=== PATIENT | female | born 1930 | race Caucasian/White ===

== ENCOUNTER 2017-03-10 14:59 | Inpatient (IN) | payer MEDICARE, OTHER ==
[2017-03-10] VITALS (14 sets, daily range): BP systolic 110–162; BP diastolic 54–92; PULSE 57–148; RESP 17–22; O2SAT 94–99
[~2017-03-10] VITALS: Ht 162.6 cm; Wt 86.1 kg
--- NOTE | 2017-03-10 15:02 | ED.REPORT ---
HPI-Abd Pain F 40 and Over Date of Service Mar 10, 2017 ED Provider: Dandy Bhat DO The patient is an 86 year old female with history of hypertension, hypothyroidism, GERD, diverticulitis, and asthma, who was brought to the emergency department by EMS from the [facility] for atrial fibrillation with rapid ventricular response. The patient was seen in the ED a few days ago, diagnosed with diverticulitis, and was discharged home on antibiotics. She has not vomited for a few days and never had diarrhea. She was being seen at the clinic today for followup. During the visit she was found to be in atrial fibrillation. The patient also mentioned left-sided chest pain during the visit. She was given 324 mg aspirin and 25 mg Cardizem prior to arrival to the emergency department. She has never had similar symptoms in the past. She denies history of atrial fibrillation. She is not on blood thinners. The patient feels fine at this time. Nursing Notes Stated Complaint: ABDOMINAL PAIN Chief Complaint: Dysrhythmia/Cardiac Nursing Notes Reviewed: Yes Allergies: Coded Allergies: Penicillins (Verified Allergy, Unknown, HIVES, 06/24/09) ciprofloxacin (Verified Allergy, Unknown, 03/10/17) codeine (Verified Allergy, Unknown, N/V, 06/24/09) diclofenac (Verified Allergy, Unknown, Nausea, 03/10/17) hydrochlorothiazide (Verified Allergy, Unknown, 03/10/17) propoxyphene (Verified Allergy, Unknown, N/V, 06/24/09) tramadol (Verified Allergy, Unknown, 03/10/17) General Time Seen by MD: 14:59 Chief Complaint Other (a-fib with RVR) Hx Obtained From: Patient, Spouse, EMS, Primary care provider Arrived By: Ambulance Sudden in Onset?: No Onset Occurred: Onset unknown Symptom Duration: Duration unknown Location: : LLQ Quality: Painful Severity: Current: Moderate Severity: Maximum: Moderate Recent Healthcare: No recent hospitalization, Recent doctor visit Similar Sx Previous: No Past Medical History Past Medical History Hypertension GERD Hypothyroidism Chronic kidney disease Asthma Arthritis Diverticulitis Past Surgical History Cholecystectomy Hysterectomy Right elbow Left knee replacement Appendectomy Colonoscopy Family History Noncontributory Smoking History Unknown if Ever Smoker Social History Other Social History: Good social support, , Local resident Ambulatory Status Independent Review of Systems Cardiovascular: Reports: Chest pain GI: Reports: Abdominal pain, Denies: Diarrhea, Vomiting Complete sys rev & neg: except as marked. Physical Exam Vital Signs Vital Signs (First) Date Time Temp Pulse Resp B/P Pulse Ox O2 Delivery O2 Flow Rate FiO2 03/10/17 15:01 36.8 131 22 152/81 98 Room Air Initial VS: Reviewed Head / Eyes: Atraumatic, Normocephalic, PERRL ENT: Mucous membranes moist, Conjunctiva normal, No scleral icterus Neck: Supple, Non-tender, Full range of motion Lymphatic: No lymphadenopathy Extremities: Vascular intact, Neuro intact, No swelling, No tenderness Skin: Warm, Dry, No cyanosis Neurologic: Alert, Oriented, Nonfocal Psychiatric: Mood/affect normal, Behavior normal, Normal thought content General/Constitutional: Awake, Alert Respiratory / Chest: Atraumatic, Breath sounds NL, Breath sounds = bilat, No respiratory distress, No rales, No rhonchi, No wheezing, No stridor Cardiovascular: Heart sounds NL Heart Rate / Rhythm: Positive: Irregular rhythm, Tachycardia Abdomen: Soft, No guarding, No rebound, BS normoactive, No distention, No hernia, No palpable mass, No pulsatile mass Tenderness/Guarding/Rebound: Positive: Tender LLQ..., Tender RLQ... Back: Inspection NL, Non-tender, No CVA tenderness Interpretation & Diagnostics Lab Results Interpretation Result Diagram: 03/10/17 1625 03/10/17 1625 Test 03/10/17 16:25 03/10/17 16:33 White Blood Count 10.1th/mm3 (3.8-10.1) Red Blood Count 4.23mil/mm3 (3.90-5.20) Hemoglobin 12.0g/dL (12.0-15.6) Hematocrit 36.6% (35.0-46.0) Mean Corpuscular Volume 86.5fL (81-100) Mean Corpuscular Hemoglobin 28.4pg (27.0-35.0) Mean Corpuscular Hemoglobin Concent 32.8% (32.0-37.0) Red Cell Distribution Width 13.0% (12.3-15.4) Platelet Count 250bil/L (150-400) Neutrophils (%) (Auto) 68.0% (40-74) Lymphocytes (%) (Auto) 14.1% (14-46) Monocytes (%) (Auto) 16.5% (4-12) Eosinophils (%) (Auto) 0.9% (0-5) Basophils (%) (Auto) 0.3% (0-3) Prothrombin Time 10.6sec (8.1-12.5) Prothromb Time International Ratio 0.99ratio Sodium Level 141mEq/L (134-144) Potassium Level 3.3mEq/L (3.5-5.2) Chloride Level 103mEq/L (97-108) Carbon Dioxide Level 21mmol/L (18-29) Blood Urea Nitrogen 14mg/dL (8-27) Creatinine 0.87mg/dL (0.57-1.00) Estimat Glomerular Filtration Rate 88mL/min (>59) Glucose Level 109mg/dL (60-99) Calcium Level 9.0mg/dL (8.5-10.1) Magnesium Level 1.8mg/dL (1.6-2.6) Total Bilirubin 0.2mg/dL (0.0-1.2) Aspartate Amino Transf (AST/SGOT) 19U/L (0-50) Alanine Aminotransferase (ALT/SGPT) 12U/L (0-32) Alkaline Phosphatase 83U/L (25-165) Troponin T < 0.010ug/L (0.0-0.011) Pro-B-Type Natriuretic Peptide 1835pg/mL (0-738) Total Protein 6.5g/dL (6.4-8.4) Albumin 3.3g/dL (3.4-5.0) Hold Burnett Top Tube Received (Received) ECG Interpretation ECG Interpretation: Atrial fibrillation with a rate of 119 PVCs Time: 15:37 Interpreted by: ED physician X-Ray Chest Interpretation Chest Xray Interpretation: IMPRESSION: No radiographic evidence of acute cardiopulmonary pathology. Dictated by: Fredi Owen M.D. on 03/10/2017 at 16:15 Interpretation / Wet Read by: Interpret - Radiologist CT Abd / Pelvis Interpretation IMPRESSION: 1. Sigmoid diverticulitis without diverticular abscess or macroscopic free air. 2. Small 4 mm right lower lobe pulmonary nodule. A followup study may be performed in 12 months to demonstrate stability if clinically indicated. Dictated by: Shelton Watt M.D. on 03/10/2017 at 17:50 Interpretation / Wet Read by: Interpret - Radiologist Re-Eval/Medical Decision Med Decision/Clinical Course CHADS 2 score = 2. AFib with RVR rate not able to be controlled with multiple doses of IV Cardizem. IV Cardizem drip initiated in the ER. Additionally has diverticulitis which is worsening based on symptoms. Patient will be admitted. Source of Hx: Old records, EMS, Family Re-Evaluation/Progress : Time of Eval: 18:02 Re-Evaluation/Progress Note: Discussed plan for admission with the patient. She is agreeable with plan. All questions were addressed. Consultation #1: Consulted With: Hospitalist Requested Call at: 18:03 Manager Sap: Will see patient, Agrees with eval, Agrees with plan, Accepts admit Consultation #2: Referral / Consult Name: Trish Alcaraz MD Call Returned at: 18:15 Note: no anticoagulation, contact cardiology in AM if consult needed Counseled Regarding: Diagnosis, Lab results, Need for admission Discharge & Departure Primary Impression: Atrial fibrillation with rapid ventricular response Additional Impression: Diverticulitis Diverticulitis site: unspecified part of intestinal tract Diverticulitis bleeding: without bleeding Diverticulitis complication: without perforation or abscess Qualified Code: K57.92 - Diverticulitis of intestine, part unspecified, without perforation or abscess without bleeding Disposition: ADMITTED TO HOSPITAL Discharge Condition All VS Reviewed: Yes Condition: Stable Referrals: Nicole Stephen MD (PCP) (Family) Crit Care Except Billable Proc Time Spent: 30-74 minutes Services Performed: Patient management by me, Time spent at bedside, Reviewing test results Critical Care Notes: See MDM Scribe Attestation Portions of this note were transcribed by Margo Bedolla. I, Dr. Bhat personally performed the history, physical exam and medical decision-making; I reviewed and confirmed the accuracy of the information in the transcribed note. Signed by: Jeromy López, 03/10/17 at 1805. copies to: Nicole Stephen MD, Timothy Reid DAWN Mar 10, 2017 15:02 Margo Bedolla Mar 10, 2017 15:05
[2017-03-10] MEDS ORDERED: Diltiazem 5 mg/mL 5 mL Inj IVPUSH ONE ×2 (15:40→16:35)
[2017-03-10] MEDS ORDERED: 0.9% Sodium Chloride 500 ML IV ONE (15:45)
--- NOTE | 2017-03-10 16:17 | DRSVH ---
PROCEDURE: X-RAY CHEST ONE VIEW, PORTABLE ([id number]) INDICATIONS: dysrythmia TECHNIQUE: One view of the chest was acquired. COMPARISON: None. FINDINGS: Surgical changes and devices: None. Lungs and pleura: No pleural effusions or pneumothorax. Lungs are clear. Mediastinum: Mediastinal contours appear normal. Heart size is normal. Bones and chest wall: No suspicious bony lesions. Overlying soft tissues appear unremarkable. IMPRESSION: No radiographic evidence of acute cardiopulmonary pathology. The Dictated by: Fredi Owen M.D. on 03/10/2017 at 16:15 Approved by: Fredi Owen M.D. on 03/10/2017 at 16:15
[2017-03-10 16:40] LABS: BASOPHILS % (AUTO) 0.3 % (0-3); EOSINOPHILS % (AUTO) 0.9 % (0-5); MONOCYTES % (AUTO) 16.5 % (4-12); Mean Corpuscular Hemoglobin 28.4 pg (27.0-35.0); Mean Corpuscular Volume 86.5 fL (81-100); Platelet Count 250 bil/L (150-400)
[2017-03-10 16:52] LABS: INR 0.99 ratio
[2017-03-10 17:00] LABS: TROPONIN T < 0.010 ug/L (0.0-0.011)
[2017-03-10 17:10] LABS: Magnesium 1.8 mg/dL (1.6-2.6)
--- NOTE | 2017-03-10 17:56 | DRSVH ---
PROCEDURE: CT ABDOMEN AND PELVIS WITH CONTRAST ([id number]) INDICATIONS: Lower abdominal pain. TECHNIQUE: After the administration of oral and intravenous contrast, 5 mm thick sections acquired from the diap hragms to the symphysis. 5 mm thick coronal and sagittal reformats were performed. For radiation do se reduction, the following was used: automated exposure control, adjustment of mA and/or kV accordi ng to patient size. COMPARISON: None. FINDINGS: Image quality: Excellent. ABDOMEN: Lung bases: There is minimal dependent atelectasis. There is a small 4 mm pulmonary nodule in the ri ght lower lobe. Heart size is normal. There is a small hiatal hernia. Solid organs: Liver and spleen are normal in size and enhancement. Gallbladder is surgically absent . Biliary system is non-dilated. There is fatty atrophy of the pancreas. No pancreatic duct dilata tion. No adrenal nodules. There are bilateral extrarenal pelves without definite hydronephrosis. Peritoneum and bowel: Stomach and small bowel loops are normal in caliber and wall thickness. There is colonic diverticulosis with associated inflammatory fat stranding, fluid, and segmental clonic wa ll thickening in the sigmoid colon consistent with acute diverticulitis. No diverticular abscess or macroscopic free air. Nodes and vessels: No retroperitoneal or mesenteric adenopathy. Aorta and inferior vena cava are no rmal in caliber. Miscellaneous: No ventral hernias. PELVIS: Genitourinary: Bladder wall thickness is normal. Uterus is surgically absent. Miscellaneous: No inguinal hernias or adenopathy. Bones: No suspicious bony lesions. No vertebral body compression fractures. IMPRESSION: 1. Sigmoid diverticulitis without diverticular abscess or macroscopic free air. 2. Small 4 mm right lower lobe pulmonary nodule. A followup study may be performed in 12 months to demonstrate stability if clinically indicated. Dictated by: Shelton Watt M.D. on 03/10/2017 at 17:50 Approved by: Shelton Watt M.D. on 03/10/2017 at 17:55
[2017-03-10] MEDS ORDERED: Diltiazem Inj 125 MG in Dextrose 5% 100 ML IV SCH (18:01)
[2017-03-10] MEDS ORDERED: Ertapenem Inj 1,000 MG in 0.9% Sodium Chloride 50 ML IV ONE (18:05)
[2017-03-10] MEDS ORDERED: Ondansetron 2 mg/mL 2 mL Inj IVPUSH PRN ×2 (18:25→19:05)
[2017-03-10] MEDS ORDERED: Alum-Mag Hydrox-Simeth 30 mL Suspension PO PRN ×2 (18:25→19:05)
[2017-03-10] MEDS ORDERED: Polyethylene Glycol (PEG) 17 Gm Powder PO PRN ×2 (19:05→23:05)
[2017-03-10] MEDS ORDERED: LOSA25TA21 PO (20:50)
[2017-03-10] MEDS ORDERED: LEVO25TA5 PO (20:51)
[2017-03-10] MEDS ORDERED: POLY17PO6 PO (20:56)
[2017-03-10] MEDS ORDERED: LEVO125T6 PO (20:56)
[2017-03-10] MEDS ORDERED: PANT40TA3 PO (20:57)
--- NOTE | 2017-03-10 20:58 | NUR ---
MED REC Completed per paperwork. Pt does not remember many medications, doses, or frequencies. Recommend faxing pharmacy or PCP office to update.
[2017-03-10] MEDS ORDERED: LEVO500T16 PO (21:14)
[2017-03-10] MEDS ORDERED: METR500T PO (21:14)
--- NOTE | 2017-03-10 23:05 | PCM.HPMED ---
Subjective Date of Service Mar 10, 2017 Primary Provider: Admitting Physician: Samantha Lopez MD Primary Care Physician: Tommy Obrien Attending Physician: Samantha Lopez MD Chief Complaint: Atrial fibrillation with RVR History of Present Illness: Tova Delgado is an 86 year old woman with history significant for hypertension , hypothyroidism, GERD, diverticulitis, chronic kidney disease and asthma who is brought to the [facility] emergency department today from [facility] due to atrial fibrillation with rapid ventricular response and had been evaluated at the emergency department several ago and was diagnosed with diverticulitis and was discharged home on oral antibiotics. Patient was following up with her primary care doctor and stated that she did not feel well. During her evaluation she was noted to be in atrial fibrillation with a rapid heart rate. She has never been in atrial fibrillation before. She also noticed some left-sided chest discomfort that has gone away after her rate has been controlled. In the clinic the patient was given a full dose of aspirin and 25 mg of Cardizem by mouth. Patient does state that she has had prior episodes of heart racing but it went away by itself. 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 She does note some exertional dyspnea and mild chest pressure. She denies any orthopnea, paroxysmal nocturnal dyspnea, or sleep apnea. She does note some lower extremity edema. She denies any prior cardiac workup including any prior stress test or echocardiograms. In the emergency department her vital signs were notable for a heart rate of 131 with a blood pressure 152/81. She was given a total 50 mg Cardizem IV push without good rate control and so was subsequently started on a Cardizem drip. Was also treated with ertapenem due to her penicillin allergy for her diverticulitis. Review of Systems: A comprehensive review of systems was conducted with the patient and found to be negative except as above in the History of Present Illness. Allergies Coded Allergies: Penicillins (Verified Allergy, Intermediate, HIVES, 03/10/17) codeine (Verified Allergy, Intermediate, N/V, 03/10/17) Home Medications Levothyroxine 125 g daily Losartan 25 mg daily Pantoprazole 40 mg daily PMH Hypertension GERD Hypothyroidism Chronic kidney disease Asthma Arthritis Diverticulitis Surgical History Cholecystectomy Hysterectomy Right elbow Left knee replacement Appendectomy Colonoscopy Family History Family history positive for coronary artery disease. Social History Hx Alcohol Use: No Hx Substance Use: No Hx Tobacco Use: No Smoking Status: Never Smoker Exam Vital Signs Vital Sign - Last Date Time Temp Pulse Resp B/P Pulse Ox O2 Delivery O2 Flow Rate FiO2 03/10/17 20:25 37.1 61 18 143/67 97 Room Air Exam General: No acute distress, well-developed, well-nourished, appropriately interactive HEENT: Normocephalic, atraumatic. External ears without defect. Pupils equal, round, and reactive to light and accommodation. Anicteric sclerae, moist conjunctivae, and no lid lag. Oropharynx free of erythema and cobble stoning with moist mucosa. Hard of hearing. Neck: Supple with full range of motion. Positive jugular venous distension. No bruits. No lymphadenopathy or thyromegaly. Cardiovascular: Regular rate and rhythm with diastolic murmur beast appreciated at the right sternal boarder. Pulmonary: Clear to auscultation bilaterally with no crackles, wheezes, or rhonchi. Normal respiratory effort with no use of accessory muscles. Abdomen: Bowel tones present. Soft, mildly tender in the LLQ, nondistended. No hepatosplenomegaly or masses appreciated. Extremities: No clubbing, cyanosis, or lymphadenopathy appreciated. Mild pitting edema of the ankles noted. Skin: Normal temperature, turgor, and texture; no rash, ulcers, or subcutaneous nodules appreciated. Neurological: Cranial nerves grossly intact. Normal muscle strength, tone, and bulk. Reflexes, coordination, and sensory function within normal limits. No known gait impairment. Psychiatric: Normal mood and affect. Alert and oriented to person, place, and time. Lab and Diagnostics Result Diagram: 03/10/17 1625 03/10/17 1625 X-Rays, CTs and MRIs X-RAY CHEST ONE VIEW, PORTABLE IMPRESSION: No radiographic evidence of acute cardiopulmonary pathology. Dictated by: Fredi Owen M.D. on 03/10/2017 at 16:15 CT ABDOMEN AND PELVIS WITH CONTRAST IMPRESSION: 1. Sigmoid diverticulitis without diverticular abscess or macroscopic free air. 2. Small 4 mm right lower lobe pulmonary nodule. A followup study may be performed in 12 months to demonstrate stability if clinically indicated. Dictated by: Shelton Watt M.D. on 03/10/2017 at 17:50 12-lead ECG Atrial fibrillation, left axis deviation, no ST changes. Assessment & Plan Tova Delgado is an 86 year old woman with history significant for hypertension , hypothyroidism, GERD, diverticulitis, chronic kidney disease and asthma who is brought to the [facility] emergency department today from [facility] due to atrial fibrillation with rapid ventricular response and had been evaluated at the emergency department several ago and was diagnosed with diverticulitis and was discharged home on oral antibiotics. New onset atrial fibrillation with RVR, present on admission, active -Etiology could include valvular disease, ischemic event, thyroid over supplementation or atrial enlargement or stress from diverticulitis -ECHO -Trend troponin -TSH -Telemetry monitoring -Patient cardioverted to NSR. Cardizem drip will be titrated off. -May benefit from anticoagulation but will hold off while patient has acute diverticulitis. Diastolic murmur concerning for aortic regurgitation, present on admission, active -ECHO as above Diverticulitis, present on admission, active -Continue ertapenem Hypothyroidism -Hold Levothyroxine CKD -Continue to monitor CODE STATUS: FULL CODE Patient is admitted under observation status with expected length of stay less than 2 midnights due to severity of presenting symptoms, risk of adverse event, and complexity of treatment plan. VTE Prophylaxis: Sub-Q Heparin (Unfractionated) Resuscitation Status: CPR: Attempt Resuscitation Attending Statement Pt seen and examined by myself and agree with above plan. Karli Reyna DO Mar 10, 2017 22:42 Samantha Lopez MD Mar 11, 2017 06:07
[2017-03-11] VITALS (7 sets, daily range): BP systolic 150–178; BP diastolic 75–97; PULSE 52–71; RESP 16–22; O2SAT 96–98
--- NOTE | 2017-03-11 06:13 | NUR ---
Admit Pt arrived to [facility] from ED via [facility]. Pt able to transfer self to bed from [facility] and tolerated well. Pt arrived on Diltiazem gtt at 10mg/hr, pt noted to be in SR in the 50's at this time and pt titrated off Diltiazem. MED REC and admit completed by admit nurse. VSS and Tele SR
[2017-03-11] MEDS: Pantoprazole 40 mg ER24 Tablet PO SCH (07:52)
[2017-03-11 08:08] LABS: Magnesium 1.9 mg/dL (1.6-2.6)
[2017-03-11] MEDS: Diltiazem CD 120 mg ER24 Capsule PO SCH (08:35)
[2017-03-11] MEDS ORDERED: Potassium Chloride 20 mEq SR Tablet PO ONE (10:25)
--- NOTE | 2017-03-11 10:53 | NUR ---
Constipation PRN Senna given as ordered with effective results. hospitalist at bed side and speaking to patient.
--- NOTE | 2017-03-11 12:24 | NUR ---
Elevated BP BP 172/82, pulse 56. patient aymptomatic. good dent hospitalist and awaiting orders.
--- NOTE | 2017-03-11 12:31 | NUR ---
Elevated BP Dr cazares called and states," continue to monitor and patient was started on Diltiazem this morning." Will continue to monitor blood pressure per doctor order. patient is aymptomatic and eating lunch," this is good."
--- NOTE | 2017-03-11 12:45 | NUR ---
Case Management: Clarification of patient status: inpatient per MD order. Agustín Dooley RN
--- NOTE | 2017-03-11 13:17 | NUR ---
Echocardiogram Echo at bed side and is in progress.
--- NOTE | 2017-03-11 13:53 | NUR ---
[facility] signed
--- NOTE | 2017-03-11 14:27 | NUR ---
physical therapy waiting for Echo to be done for ambulation Addendum: 03/11/17 at 1428 by DELANEY PAGE RN Amended: Links added.
--- NOTE | 2017-03-11 14:42 | NUR ---
Physical therapy Physical therapy worked with patient this shift.
--- NOTE | 2017-03-11 16:06 | PCM.PNMED ---
Subjective Date of Service Mar 11, 2017 Subjective Patient was admitted for afib with RVR on Diltiazem gtt and her HR soon converted to SR in the 50s so the diltiazem gtt was titrated off by the time she arrived to the floor. Today, patient reports to feel much better. She admits that she has been constipated for 4 days and finally had a large BM this morning. She had significant relief after the BM. Patient denies any CP, palpitations, SOB, nausea, or vomiting. 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 Patient also admits that she had 2 ground-level falls in the last year, both due to tripping on things. She ambulates independently at baseline. Exam Vital Signs Vital Sign - Last Date Time Temp Pulse Resp B/P Pulse Ox O2 Delivery O2 Flow Rate FiO2 03/11/17 12:15 36.7 56 22 172/82 98 Room Air Intake and Output 03/10/17 03/10/17 03/11/17 Cumulative From/Thru 14:59 22:59 06:59 03/10/17 15:01 - 03/11/17 05:40 Intake Total 500 ml 825 ml 1325 ml Output Total 500 ml 500 ml Balance 500 ml 325 ml 825 ml Intake Oral 825 ml 825 ml IV Total 500 ml 500 ml Output Urine Total 500 ml 500 ml Exam General: No acute distress, well-developed, well-nourished, appropriately interactive HEENT: Normocephalic, atraumatic. External ears without defect. Pupils equal, round, and reactive to light and accommodation. Anicteric sclerae, moist conjunctivae, and no lid lag. Oropharynx free of erythema and cobble stoning with moist mucosa. Hard of hearing. Neck: Supple with full range of motion. Positive jugular venous distension. No bruits. No lymphadenopathy or thyromegaly. Cardiovascular: Regular rate and rhythm with diastolic murmur beast appreciated at the right sternal boarder. Pulmonary: Clear to auscultation bilaterally with no crackles, wheezes, or rhonchi. Normal respiratory effort with no use of accessory muscles. Abdomen: Bowel tones present. Soft, mildly tender in the LLQ and RLQ, nondistended. No hepatosplenomegaly or masses appreciated. Extremities: No clubbing, cyanosis, or lymphadenopathy appreciated. Mild pitting edema in the bilateral ankles up to mid calves noted. Tender to palpation. Skin: Normal temperature, turgor, and texture; no rash, ulcers, or subcutaneous nodules appreciated. Neurological: Cranial nerves grossly intact. Normal muscle strength, tone, and bulk. No known gait impairment. Psychiatric: Normal mood and affect. Alert and oriented to person, place, and time. IVs and Medications Medications Reviewed: Medications were reviewed in detail Lab and Diagnostics Result Diagram: 03/10/17 1625 03/11/17 0425 X-Rays, CTs and MRIs X-RAY CHEST ONE VIEW, PORTABLE IMPRESSION: No radiographic evidence of acute cardiopulmonary pathology. Dictated by: Fredi Owen M.D. on 03/10/2017 at 16:15 CT ABDOMEN AND PELVIS WITH CONTRAST IMPRESSION: 1. Sigmoid diverticulitis without diverticular abscess or macroscopic free air. 2. Small 4 mm right lower lobe pulmonary nodule. A followup study may be performed in 12 months to demonstrate stability if clinically indicated. Dictated by: Shelton Watt M.D. on 03/10/2017 at 17:50 12-lead ECG Atrial fibrillation, left axis deviation, no ST changes. Assessment & Plan Tova Delgado is an 86 year old woman with history significant for hypertension , hypothyroidism, GERD, diverticulitis, chronic kidney disease and asthma who is brought to the [facility] emergency department today from [facility] due to atrial fibrillation with rapid ventricular response and had been evaluated at the emergency department several ago and was diagnosed with diverticulitis and was discharged home on oral antibiotics. New onset atrial fibrillation with RVR, present on admission, resolved. -Etiology could include valvular disease, ischemic event, thyroid over supplementation or atrial enlargement or stress from diverticulitis -ECHO report pending. -Troponin negative x 2 -TSH mildly elevated (5.88) and normal T4 (1.42). -Telemetry monitoring -Patient cardioverted to NSR. Cardizem drip was titrated off. Continue rate control with Cardizem 120mg CD daily. -Patient's CHADSVASC score of 4 and HAS-BLED score of 2. However, she is not a candidate for anticoagulation given her frequent falls. Discussion about stroke risks with the patient and she is not interested in starting anticoagulation at this point. Systolic murmur concerning for aortic stenosis, present on admission, active -ECHO report pending. -No known history of valvular disease. Hypertension, chronic, uncontrolled. - Patient takes Losartan 25mg at home. Will increase to 50mg today. - Give one dose of Laxis an monitor symptoms. Diverticulitis, present on admission, active -Continue ertapenem Peripheral edema, chronic, stable. -Patient reports to have chronic bilateral LE edema for unknown reason. She admits to be on Lasix for a long time but stopped for unknown reason. -No known history of CHF. -Echo as above. -Will give her a dose of Lasix 40mg PO and follow clinically. Hypothyroidism, chronic. - TSH 5.88 but normal Free T4 - Resume home Levothyroxine 125mcg daily. CKD, stable. -Normal renal function -Continue to monitor Ground level fall, chronic. -PT evaluation. CODE STATUS: FULL CODE Patient was initially admitted under observation status with expected length of stay less than 2 midnights due to severity of presenting symptoms. However, given therisk of adverse event and complexity of treatment plan, she will be in the hospital for more than 2 midnights. Anticipate discharge home tomorrow. Pain Evaluation: Adequate Pain Control VTE Prophylaxis: Sub-Q Heparin (Unfractionated) Resuscitation Status: CPR: Attempt Resuscitation Chana Dallas DO Mar 11, 2017 16:06
--- NOTE | 2017-03-11 16:24 | DRSVH ---
[facility] [address] [place] [place] [address] Echocardiogram Report Name: NANY FREEMAN MStudy Date: 03/11/2017 Height: 64 in Hospital Exam Location: [facility] Weight: 195 lb Gender: Female BSA: 1.9 m2 : 1930 Age: 86 yrs BP: 150/75 m mHg Reason For Study: Atrial fibrillation Ordering Physician: Rj Espitia Performed By: Dalton Gan Referring Physician: RAYO NOBLES Interpretation Summary The ejection fraction is estimated to be 55-60%. There is mild mitral regurgitation. The aortic valve is mildly calcified. The calculated aortic valve area is 1.1 cm2. The ascending aorta is mildly enlarged. Procedure: A two-dimensional transthoracic echocardiogram with color flow and Doppler was performed. The study quality was technically adequate. There is no prior echocardiogram noted for this patient. The patient was in sinus bradycardia with heart rates between 55-61 bpm during the exam. Left Ventricle: The left ventricle is normal in size. The ejection fraction is estimated to be 55-60%. Left ventricular wall motion is normal. Right Ventricle: The right ventricle is normal in size, thickness and function. Atria: The left atrium is mildly dilated. The right atrium is normal in size. The interatrial septum is intact with no evidence for an atrial septal defect. Mitral Valve: The mitral valve leaflets are slightly calcified. There is mild mitral regurgitation. Aortic Valve: The aortic valve is trileaflet. The aortic valve is mildly calcified. The peak aortic velocity is 3.0 m/sec. The aortic valve mean gradient is 22 mmHg. The calculated aortic valve area is 1.1 cm2. No aortic regurgitation is present. Tricuspid Valve: The tricuspid valve is not well visualized, but is grossly normal. Pulmonary artery pressures cannot be estimated because of the lack of a measurable TR jet velocity. Pulmonic Valve: The pulmonic valve is not well visualized. There is a trace or physiologic amount of pulmonic regurgitation. Great Vessels: The aortic root is normal size. The ascending aorta is mildly enlarged. The pulmonary artery is normal size. The IVC is of normal diameter and collapses less than 50% with a sniff. This suggests a right atrial pressure of 8 mm Hg. Pericardium/ Pleura There is no pericardial effusion. There is no pleural effusion. MMode/2D Measurements & Calculations LVIDd: 4.8 cm RA long axis LVOT diam LVIDs: 3.2 cm LA A2 area: 22.6 cm FS: 34.5 % LA A4 area: 22.7 cm RA area AoV Opening EPSS: 0.96 cm LA length (vol): 5.8 cm IVSd: 0.97 cm LA vol: 74.9 ml : 14.3 cm Ao root diam LVPWd: 1.0 cm LA vol index RA vol : 36.0 ml asc Aorta RA Diam: 3.8 cm IVC diam: 1.9 cm : 18.6 mm2 LV gonzales. diameter/BSA LV sys. diameter/BSA RVD1 (basal) TAPSE: 2.3 cm (cm/m^2): 2.5 (cm/m^2): 1.6 Doppler Measurements & Calculations Ao V2 max: 295.3 cm/secMV E max medardo MV E/A: 1.3 PA V2 max Ao max P.9 mmHg : 85.0 cm/sec Med Peak E' Medardo : 108.8 cm/sec Ao mean P.8 mmHg MV A max medardo PA mean PG LVOT Max Medardo : 67.6 cm/sec E/E' med: 13.0 : 2.2 mmHg : 97.3 cm/sec Lat Peak E' Medardo ELKE(I,D): 1.1 cm sev ratio: 0.31 E/E' lat: 7.6 E/e' average MV dec time: 0.13 sec Ao V2 mean LV V1 max PG PA V2 mean : 223.9 cm/sec : 69.5 cm/sec Ao V2 VTI: 75.2 cmLV V1 VTI: 23.2 cm PA pr(Accel) ELKE(V,D): 1.2 cm2 : 44.7 mmHg ELKE indexed to BSA (cm^2/m^2): 0.56 Electronically signed by: Duke Muñoz on Reading Physician:03/11/2017 04:23 PM
--- NOTE | 2017-03-11 16:50 | NUR ---
Blood pressure [place] jail[facility] hospitalist r/t blood pressure improved from 172/82 to 164/77 with one time orders for losartan and lasix. awaiting call back.
[2017-03-12] VITALS (7 sets, daily range): BP systolic 150–159; BP diastolic 74–96; PULSE 59–65; RESP 16–18; O2SAT 95–99
--- NOTE | 2017-03-12 07:20 | NUR ---
NOC PT slept well t/o the night. PT up ad jessie in room. Denies any pain. B/P remains hypertensive without any ordered interventions. Afebrile. No edema noted in BLE. PT noted to have audible murmur. PT in NSR in the low 60's. 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 Possible d/c today per MD note.
--- NOTE | 2017-03-12 09:00 | NUR ---
Social Work: Initial Assessment/multidisciplinary Rounds D: Per EMR review, pt is an 86 year old female admitted for unstable angina. Pt is Medicare with [employer] supplement; pt has no LTC insurance or VA benefits. PCP is through the [facility]. NOK is Lenin Delgado, spouse, . Advanced directives completed- information requested for chart. No RA Score entered at this time. RET[employer] FIREMAN met with the patient at bedside. Sw role, d/c planning checklist and contact information provided. Pt lives in [place] with her spouse. Pt states that she is I with all ambulation, and is I with self-care. 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 Pt continues to drive. Pt has a distant history with [facility] for HH PT but is not current with them. Pt has never required Skilled rehab. Pt is very eager to leave today and states that her spouse will either come to get her or she will pay privately for a cab. 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 Pt states that she has been looking into hiring private caregivers for her spouse but this is very expensive and she does not feel she can afford it. Pt declined caregiving resources from [employer]. Senior resource guide provided. Pt understands the safety risks of discharge without supportive services. A: Pt who is I at baseline. P: Anticipate discharge home either with spouse to transport or [facility]. RETORT FIREMAN to continue to follow to assess for d/c needs. NUVIA Diop Addendum: 03/12/17 at 0908 by SHAKIR HOOD Amended: Links added. Addendum: 03/12/17 at 1513 by SHAKIR KOO SS Pt discussed in am rounds. NUVIA informed MD that pt is not interested in HH. MD and team have concerns for pt's capacity to manage own medications and would like RETORT FIREMAN to ask the patient again if she wants home health. RETORT FIREMAN met with the patient at bedside to discuss home health again. RETORT FIREMAN reviewed HH services, insurance coverage and risks of not going home with home health. Pt continues to decline home health even for medication management. RETORT FIREMAN informed pt that she can request HH from her PCP if she changes her mind. Pt agrees and states that she understands. Pt is very eager to go home and is requesting RETORT FIREMAN arrange a taxi for her. She knows that she will have to pay privately- pt has her credit card at bedside. t/c to [employer]; transportation arranged for 3:30pm; pt to be in the main lobby. Bedside RN aware.
[2017-03-12] MEDS: Diltiazem CD 120 mg ER24 Capsule PO SCH (09:09)
[2017-03-12] MEDS: Pantoprazole 40 mg ER24 Tablet PO SCH (09:09)
[2017-03-12] MEDS ORDERED: LOSA25TA21 PO (09:19)
[2017-03-12] MEDS ORDERED: ASPI81TA3 PO (09:19)
[2017-03-12] MEDS ORDERED: DILT120C83 PO (09:19)
--- NOTE | 2017-03-12 14:29 | PCM.DIMED ---
Discharge Instructions Date of Service Mar 12, 2017 Dates of Hospitalization Mar 10, 2017 at 18:35 Discharge Diagnosis Discharge Diagnosis New onset Atrial Fibrillation with Rapid ventricular response Medication Instructions Additional med instructions Please take new medicines as below Aspirin 81mg daily Diltiazem 120mg daily Losartan increased from 25mg to 50mg daily Please finish antibiotics, Levaquin and metronidazole at home Patient Instructions Patient Instructions You were hospitalized with irregular heart beat, likely triggered by recent colon infection. your heart rate was better controlled with medicine, Since multiple falls, you were recommended to take aspirin instead of strong blood thinner. You tolerated new medicine to control your heart rate well. Since this new medicine changes, you were recommended home health but adamantly refused. Please continue to follow medicine instruction as above. Please follow up with your doctor in 2weeks Follow-up Provider[facility] Follow-up with PCP in: 2 weeks Ailin Velasco MD Mar 12, 2017 10:59
--- NOTE | 2017-03-12 15:12 | NUR ---
Discharge Pt discharged at 1511. PIV removed intact. She was given instructions prior to discharge including instructions for follow up care. She was instructed to make an appointment with her primary care doctor to be seen within 2 weeks. She confirmed understanding of this. She left with 3 new prescriptions. She denied any questions at time of discharge. She was brought down by wheelchair by hospital staff where a taxi would pick her up to take her home.
--- NOTE | 2017-03-12 16:10 | PCM.DC.MED ---
Discharge Summary Date of Service Mar 12, 2017 Dates of Hospitalization Date of Hospital Admission Mar 10, 2017 at 18:35 Date of Discharge: Mar 12, 2017 Providers: Admitting Physician: Samantha Lopez MD Primary Care Physician: Tommy Obrien Attending Physician: Ailin Jewell MD Diagnosis at Time of Discharge Diagnosis at Time of Discharge New onset Atrial Fibrillation with Rapid ventricular response Recently diagnosed diverticulitis Procedures XRay, CTs & MRIs X-RAY CHEST ONE VIEW, PORTABLE IMPRESSION: No radiographic evidence of acute cardiopulmonary pathology. Dictated by: Fredi Owen M.D. on 03/10/2017 at 16:15 CT ABDOMEN AND PELVIS WITH CONTRAST IMPRESSION: 1. Sigmoid diverticulitis without diverticular abscess or macroscopic free air. 2. Small 4 mm right lower lobe pulmonary nodule. A followup study may be performed in 12 months to demonstrate stability if clinically indicated. Dictated by: Shelton Watt M.D. on 03/10/2017 at 17:50 ECG 12 Lead Atrial fibrillation, left axis deviation, no ST changes. Brief History HPI obtained by on 03/10 Tova Delgado is an 86 year old woman with history significant for hypertension , hypothyroidism, GERD, diverticulitis, chronic kidney disease and asthma who is brought to the [facility] emergency department today from [facility] due to atrial fibrillation with rapid ventricular response and had been evaluated at the emergency department several ago and was diagnosed with diverticulitis and was discharged home on oral antibiotics. Patient was following up with her primary care doctor and stated that she did not feel well. During her evaluation she was noted to be in atrial fibrillation with a rapid heart rate. She has never been in atrial fibrillation before. She also noticed some left-sided chest discomfort that has gone away after her rate has been controlled. In the clinic the patient was given a full dose of aspirin and 25 mg of Cardizem by mouth. Patient does state that she has had prior episodes of heart racing but it went away by itself. 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 She does note some exertional dyspnea and mild chest pressure. She denies any orthopnea, paroxysmal nocturnal dyspnea, or sleep apnea. She does note some lower extremity edema. She denies any prior cardiac workup including any prior stress test or echocardiograms. In the emergency department her vital signs were notable for a heart rate of 131 with a blood pressure 152/81. She was given a total 50 mg Cardizem IV push without good rate control and so was subsequently started on a Cardizem drip. Was also treated with ertapenem due to her penicillin allergy for her diverticulitis. Hospital Course Tova Delgado is an 86 year old woman with history significant for hypertension , hypothyroidism, GERD, diverticulitis, chronic kidney disease and asthma who is brought to the [facility] emergency department today from [facility] due to atrial fibrillation with rapid ventricular response and had been evaluated at the emergency department several ago and was diagnosed with diverticulitis and was discharged home on oral antibiotics. Brief hospital course, pt was admitted with new onset afib RVR, refractory to multiple dilt ivp, required dilt gtt, hemodynamically remained stable, converted to NSR. TTE showed normal EF, known valvular dz , AVA1.1cm2. Pt remained asymptomatic, tolerated [id number]. Aspirin was started given high CHADSVASC, considering her baseline cognitive dysfunction, frequent falls. Patient was strongly encouraged HH, RN visit given no good support at home, pt adamantly refused, deemed safe to d/c to home. New onset atrial fibrillation with RVR, present on admission, resolved. -Etiology could include valvular disease, ischemic event, thyroid over supplementation or atrial enlargement or stress from diverticulitis -ECHO report pending. -Troponin negative x 2 -TSH mildly elevated (5.88) and normal T4 (1.42). -Telemetry monitoring -Patient cardioverted to NSR. Cardizem drip was titrated off. Continue rate control with Cardizem 120mg CD daily. -Patient's CHADSVASC score of 4 and HAS-BLED score of 2. However, she is not a candidate for anticoagulation given her frequent falls. Discussion about stroke risks with the patient and she is not interested in starting anticoagulation at this point. Systolic murmur concerning for aortic stenosis, present on admission, active -ECHO report pending. -No known history of valvular disease. Hypertension, chronic, uncontrolled. - Patient takes Losartan 25mg at home. Will increase to 50mg today. - Give one dose of Laxis an monitor symptoms. Diverticulitis, present on admission, active -Continue ertapenem Peripheral edema, chronic, stable. -Patient reports to have chronic bilateral LE edema for unknown reason. She admits to be on Lasix for a long time but stopped for unknown reason. -No known history of CHF. -Echo as above. -Will give her a dose of Lasix 40mg PO and follow clinically. Hypothyroidism, chronic. - TSH 5.88 but normal Free T4 - Resume home Levothyroxine 125mcg daily. CKD, stable. -Normal renal function -Continue to monitor Ground level fall, chronic. -PT evaluation. CODE STATUS: FULL CODE Patient was initially admitted under observation status with expected length of stay less than 2 midnights due to severity of presenting symptoms. However, given therisk of adverse event and complexity of treatment plan, she will be in the hospital for more than 2 midnights. Anticipate discharge home tomorrow. Exam Vital Signs (Last) Date Time Temp Pulse Resp B/P Pulse Ox O2 Delivery O2 Flow Rate FiO2 03/12/17 12:49 37.0 63 18 150/96 99 Room Air Exam pt was examined on the day of d/c Test 03/10/17 16:25 03/10/17 16:33 03/11/17 00:01 03/11/17 00:46 White Blood Count 10.1th/mm3 (3.8-10.1) Red Blood Count 4.23mil/mm3 (3.90-5.20) Hemoglobin 12.0g/dL (12.0-15.6) Hematocrit 36.6% (35.0-46.0) Mean Corpuscular Volume 86.5fL (81-100) Mean Corpuscular Hemoglobin 28.4pg (27.0-35.0) Mean Corpuscular Hemoglobin Concent 32.8% (32.0-37.0) Red Cell Distribution Width 13.0% (12.3-15.4) Platelet Count 250bil/L (150-400) Neutrophils (%) (Auto) 68.0% (40-74) Lymphocytes (%) (Auto) 14.1% (14-46) Monocytes (%) (Auto) 16.5% (4-12) Eosinophils (%) (Auto) 0.9% (0-5) Basophils (%) (Auto) 0.3% (0-3) Prothrombin Time 10.6sec (8.1-12.5) Prothromb Time International Ratio 0.99ratio Pro-B-Type Natriuretic Peptide 1835pg/mL (0-738) Hold Burnett Top Tube Received (Received) Thyroid Stimulating Hormone (TSH) 5.880uIU/mL (0.450-4.500) Free Thyroxine 1.42ng/dL (0.82-1.77) Hold Urine Received (Received) Test 03/11/17 04:25 03/12/17 05:20 Total Bilirubin 0.2mg/dL (0.0-1.2) Aspartate Amino Transf (AST/SGOT) 17U/L (0-50) Alanine Aminotransferase (ALT/SGPT) 9U/L (0-32) Alkaline Phosphatase 66U/L (25-165) Troponin T 0.010ug/L (0.0-0.011) Total Protein 6.1g/dL (6.4-8.4) Albumin 3.0g/dL (3.4-5.0) Sodium Level 142mEq/L (134-144) Potassium Level 3.7mEq/L (3.5-5.2) Chloride Level 102mEq/L (97-108) Carbon Dioxide Level 25mmol/L (18-29) Blood Urea Nitrogen 12mg/dL (8-27) Creatinine 0.77mg/dL (0.57-1.00) Estimat Glomerular Filtration Rate 102mL/min (>59) Glucose Level 109mg/dL (60-99) Calcium Level 9.2mg/dL (8.5-10.1) Magnesium Level 2.0mg/dL (1.6-2.6) Discharge Medications Discharge Medications Aspirin Chew (Aspirin Chew) 81 Mg Chew 81 MG PO DAILY Prescribed by: AILIN JEWELL MD Diltiazem ER (Cardizem CD) 120 Mg Cap.er.24h 120 MG PO DAILY Prescribed by: AILIN JEWELL MD Levofloxacin (Levaquin) 500 Mg Tablet 500 MG PO DAILY (Reported) Levothyroxine (Levothyroxine) 125 Mcg Tablet 125 MCG PO DAILY (Reported) Losartan Potassium (Losartan Potassium) 25 Mg Tablet 50 MG PO QAM Prescribed by: AILIN JEWELL MD Metronidazole (Flagyl) 500 Mg Tablet 500 MG PO BID (Reported) Pantoprazole DR (Pantoprazole DR) 40 Mg Tablet.dr 40 MG PO DAILY (Reported) As needed Polyethylene Glycol 3350 (Miralax) 17 Gm Powd.pack 17 GM PO DAILY PRN PRN For Constipation (Reported) Additional med instructions Please take new medicines as below Aspirin 81mg daily Diltiazem 120mg daily Losartan increased from 25mg to 50mg daily Please finish antibiotics, Levaquin and metronidazole at home Followup Plan Disposition: home Patient Instructions You were hospitalized with irregular heart beat, likely triggered by recent colon infection. your heart rate was better controlled with medicine, Since multiple falls, you were recommended to take aspirin instead of strong blood thinner. You tolerated new medicine to control your heart rate well. Since this new medicine changes, you were recommended home health but adamantly refused. Please continue to follow medicine instruction as above. Please follow up with your doctor in 2weeks Follow-up Provider: [facility] Follow-up with PCP in: 2 weeks Time spent 65min Ailin Jewell MD Mar 12, 2017 14:46
== END 2017-03-12 15:20 | disposition home or self-care (01) | DRG 309 ==
LOC: SED 14:59 → OBSVTOIN 18:35 → PCC 18:35
PROVIDERS: ADMIT Specialist; ATTEND Internal Medicine
PROC: 3E033RZ Introduction of Antiarrhythmic into Peripheral Vein, Percutaneous Approach (ICD-10-PCS; principal; 2017-03-10)
DX: I48.91 Unspecified atrial fibrillation (principal); K57.32 Diverticulitis of large intestine without perforation or abscess without bleeding; I10 Essential (primary) hypertension; E03.9 Hypothyroidism, unspecified; K21.9 Gastro-esophageal reflux disease without esophagitis; J45.909 Unspecified asthma, uncomplicated; I35.1 Nonrheumatic aortic (valve) insufficiency; R29.6 Repeated falls; R60.9 Edema, unspecified; Z88.0 Allergy status to penicillin